=== PATIENT | female | born 1945 | race Caucasian/White ===

== ENCOUNTER 2022-05-08 04:52 | Emergency (ER) | payer MEDICARE ==
[2022-05-08] MEDS ORDERED: Amoxicillin/Potassium Clav 875 MG TAB ONE (06:03)
== END 2022-05-08 06:09 | disposition home or self-care (01) ==
LOC: BURERS 04:52
DX: L04.0 Acute lymphadenitis of face, head and neck (principal)
CPT/HCPCS: 99283

== ENCOUNTER 2022-06-26 11:57 | Outpatient (CLI) | payer MEDICARE | END 2022-06-26 11:58 | disposition home or self-care (01) | LOC: BURCT 11:57 | PROVIDERS: ATTEND Family Medicine | DX: R51.9 Headache, unspecified (principal) | CPT/HCPCS: 70450 ==

== ENCOUNTER 2022-10-17 11:44 | Outpatient (CLI) | payer MEDICARE | END 2022-10-17 11:45 | disposition home or self-care (01) | LOC: BURRAD 11:44 | PROVIDERS: ATTEND Nurse Practitioner Family | DX: S79.912A Unspecified injury of left hip, initial encounter (principal); M25.551 Pain in right hip; M79.604 Pain in right leg | CPT/HCPCS: 72170 ==

== ENCOUNTER 2022-10-24 | Emergency (ER) | payer MEDICARE | END 2022-10-24 00:33 | disposition home or self-care (01) | LOC: BURERS | DX: S70.01XA Contusion of right hip, initial encounter (principal); M25.471 Effusion, right ankle; M25.474 Effusion, right foot; I10 Essential (primary) hypertension; W17.89XA Other fall from one level to another, initial encounter; Y93.31 Activity, mountain climbing, rock climbing and wall climbing; Z79.899 Other long term (current) drug therapy | CPT/HCPCS: 99283 ==

== ENCOUNTER 2023-04-04 01:24 | Emergency (ER) | payer MEDICARE ==
[2023-04-04] MEDS ORDERED: Amoxicillin/Potassium Clav 875 MG TAB ONE (02:00)
== END 2023-04-04 02:05 | disposition home or self-care (01) ==
LOC: BURERS 01:24
DX: L04.0 Acute lymphadenitis of face, head and neck (principal)
CPT/HCPCS: 99282